=== PATIENT | female | born 1995 | race Hispanic/Latino ===

== ENCOUNTER 2024-05-08 17:23 | Emergency (ER) | payer MEDICAID ==
[~2024-05-08] VITALS: Ht 157.5 cm; Wt 86.2 kg
[~2024-05-08 17:23] MED LIST: INS7030 SQ; LISI2.5T13 PO; LOVA20TA3 PO; METF-910 PO
[2024-05-08 17:26] VITALS: BP 142/92; PULSE 115; RESP 18
[2024-05-08] MEDS ORDERED: CEPH500B PO (18:05)
[2024-05-08] MEDS: CEFTRIAXONE 1G VIAL IM ONE (18:13)
[2024-05-08] MEDS: DIPH,PERTUSS(ACELL),TET VAC/PF 0.5 ML VIAL IM ONE (18:15)
[2024-05-10] MEDS ORDERED: CLIN-141 PO (00:03)
== END 2024-05-08 18:29 | disposition home or self-care (01) ==
LOC: EDH 17:23
DX: L02.811 Cutaneous abscess of head [any part, except face] (principal); Z79.899 Other long term (current) drug therapy; Z88.6 Allergy status to analgesic agent
CPT/HCPCS: 99284; 90715; 96372; 90471; J0696

== ENCOUNTER 2025-10-23 14:40 | Emergency (ER) | payer MEDICAID ==
[~2025-10-23] VITALS: Ht 157.5 cm; Wt 81.6 kg
--- NOTE | 2025-10-23 14:46 | ERN ---
ED Note History of Present Illness Stated Complaint: VAG BLEED Chief Complaint: Vaginal Bleeding Time Seen by MD: 14:42 Dictation: PATIENT IS A 30-YEAR-OLD FEMALE COMING IN TODAY STATES SHE IS 10 WEEKS WITH PELVIC CRAMPING AND VAGINAL BLEEDING ONSET THIS MORNING. NO FEVER NO CHILLS NO NAUSEA VOMITING. SHE STATES HER [employer] DOCTORS DR. MATA HAD ADVISED HER TO GO TO [facility]. NO CARE SHE STATES SHE HAS NOT HAD HER 1ST APPOINTMENT WITH THE [employer] TECHNICIAN DOCTOR. Allergies: Coded Allergies: ibuprofen (Unverified Allergy, Unknown, 04/02/16) Home Meds Active Scripts Clindamycin HCl (Clindamycin HCl) 300 Mg Capsule, 300 MG PO Q6 for 7 Days, #28 CAP Prov:NORMA ORNELAS MD 05/10/24 Cephalexin Monohydrate (Keflex) 500 Mg Cap, 500 MG PO QID\ for 7 Days, #28 CAP Prov:NORMA ORNELAS MD 05/08/24 Metformin HCl (Metformin HCl ER) 500 Mg Tab.er.24h, 500 MG PO BIDMEALS, #60 TAB Prov:SHERYL CASTRO MD 04/04/16 Lisinopril (Lisinopril) 2.5 Mg Tablet, 2.5 MG PO DAILY, #30 TAB Prov:SHERYL CASTRO MD 04/04/16 Hum Insulin NPH/Reg Insulin Hm (Humulin 70/30) 100 Units/Ml Inj, 10 UNITS SQ BIDAC for 50 Days, ML Prov:SHERYL CASTRO MD 04/04/16 Lovastatin (Lovastatin) 20 Mg Tablet, 20 MG PO HS, #30 TAB Prov:SHERYL CASTRO MD 04/04/16 Past Medical History Past Medical History: No Pertinent History Surgical History: None : 2 Para: 0 Aborts: 1 RN Note Reviewed/Agreed w/PFSH: Yes Review of System Dictation CONSTITUTIONAL: NEGATIVE EXCEPT FOR HPI HEAD/FACE: NEGATIVE EXCEPT FOR HPI EENT: NEGATIVE EXCEPT FOR HPI RESPIRATORY: NEGATIVE EXCEPT FOR HPI GASTROINTESTINAL/ABDOMINAL: NEGATIVE EXCEPT FOR HPI GENITOURINARY: NEGATIVE EXCEPT FOR HPI PELVIC CRAMPING/VAGINAL BLEEDING MUSCULOSKELETAL: NEGATIVE EXCEPT FOR HPI INTEGUMENTARY: NEGATIVE EXCEPT FOR HPI NEUROLOGICAL/PSYCH: NEGATIVE EXCEPT FOR HPI HEMATOLOGIC/LYMPHATIC: NEGATIVE EXCEPT FOR HPI ALL SYSTEMS NEGATIVE, EXCEPT NOTED ABOVE. 13 POINT REVIEW OF SYSTEMS ASSESSED AND ALL NEGATIVE EXCEPT FOR ABOVE. Initial Vital Sign VS Vital Signs Date Time Temp Pulse Resp B/P (MAP) Pulse Ox O2 Delivery O2 Flow Rate FiO2 10/23/25 14:42 98.2 92 18 159/90 98 Physical Exam Dictation VITAL SIGNS REVIEWED GENERAL APPEARANCE: ALERT, ORIENTED X 3, NO ACUTE DISTRESS, WELL DEVELOPED, NOUR ISHED. HEAD AND FACE: NON-TRAUMATIC. EYES: PERRL, PINK CONJUNCTIVAS, EYELID NO TRAUMA, ANTERIOR CHAMBER WITH ARCUS SENILIS. EARS: PINNAS INTACT AND NO SIGNS OF TRAUMA OR ERYTHEMA EAR CANALS CLEAR AND NO DISCHARGE TM NO ERYTHEMA NOSE: NO DISCHARGE, NO BLEEDING. OROPHARYNX: MOUTH NORMAL, TONGUE PINK, PHARYNX CLEAR,NO ERYTHEMA, TONSILS NO EXUDATES, NO ABSCESSES NOTED, MUCOUS MEM BRANE MOIST NECK: SUPPLE, NON-TENDER, NO THYROMEGALY, NO MASSES, NO JVD, NO BRUITS BREAST:DEFERRED CHEST:NO TENDERNESS, NO CREPITUS, NO PARADOXICAL MOVEMENT, NO RETRACTIONS LUNGS:CLEAR, WELL-VENTILATED, SYMMETRIC, NO RALES, NO WHEEZING, NO RHONCHI, NO STRIDOR, GOOD BREATH SOUNDS BILATERALLY HEART: REGULAR RATE, REGULAR RHYTHM, NO MURMUR, NO GALLOPS VASCULAR: NO PERIPHERAL EDEMA, ABDOMEN: SOFT, POSITIVE BOWEL SOUNDS, NONDISTENDED, NO GUARDING, NONTENDER, NO REBOUND, NO MASSES NO HEPATOMEGALY, NO SPLENOMEGALY, NO SWAIN'S SIGN, NO HERNIAS. RECTAL: DEFERRED GENITAL: DEFERRED NEUROLOGICAL: NORMAL SPEECH, MOTOR FUNCTION INTACT, SENSORY FUNCTION INTACT MUSCULOSKELETAL: NECK NONTENDER, FULL RANGE OF MOTION, BACK NONTENDER, FULL RANGE OF MOTION, EXTREMITIES: NONTENDER, FULL RANGE OF MOTION SKIN: COLOR PINK, DRY, NO TURGOR, NO RASH, NO LACERATIONS, NO ABRASIONS, NO CONTUSIONS. LYMPHATIC: DEFERRED Results (Laboratory/Radiology) Laboratory/Radiology Laboratory Tests Test 10/23/25 14:51 White Blood Count 11.9 K/uL (4.8-10.8) H Red Blood Count 5.01 MIL/uL (4.00-5.50) Hemoglobin 14.2 g/dL (12.0-16.0) Hematocrit 42.3 % (36-48) Mean Corpuscular Volume 84.4 fL (79-99) Mean Corpuscular Hemoglobin 28.3 pg (27.0-33.0) Mean Corpuscular Hemoglobin Concent 33.6 g/dL (32.0-36.0) Red Cell Distribution Width 12.7 % (11.0-15.5) Platelet Count 315 K/uL (130-400) Mean Platelet Volume 9.8 fL (7.5-10.5) Immature Granulocyte % (Auto) 0.4 % (0-1) Neutrophils (%) (Auto) 65.5 % (40.0-77.0) Lymphocytes (%) (Auto) 26.1 % (21.0-51.0) Monocytes (%) (Auto) 6.0 % (3.0-13.0) Eosinophils (%) (Auto) 1.6 % (0.0-8.0) Basophils (%) (Auto) 0.4 % (0.0-5.0) Neutrophils # (Auto) 7.8 K/uL (1.8-7.7) H Lymphocytes # (Auto) 3.1 K/uL (1.0-4.8) Monocytes # (Auto) 0.7 K/uL (0.1-1.0) Eosinophils # (Auto) 0.19 K/uL (0.00-0.70) Basophils # (Auto) 0.05 K/uL (0.00-0.20) Absolute Immature Granulocyte (auto 0.05 K/uL (0-1) Nucleated Red Blood Cells 0.0 % (0.0-0.19) Sodium Level 135 mmol/L (136-145) L Potassium Level 3.8 mmol/L (3.5-5.1) Chloride Level 99 mmol/L (101-111) L Carbon Dioxide Level 27 mmol/L (21-32) Blood Urea Nitrogen 9 mg/dL (7-18) Creatinine 0.6 mg/dL (0.5-1.0) Glomerular Filtration Rate Calc 124 mL/min (>90) Random Glucose 224 mg/dL (70-105) H Total Calcium 9.2 mg/dL (8.5-10.1) Human Chorionic Gonadotropin, Quant 929 mIU/mL (0-5) H 1510/OB ULTRASOUND DEMONSTRATES NO IUP AT THIS TIME. Labs Reviewed?: Yes ED Course ED Course Orders Procedure Category Date Status Time Cbc With Differential LAB 12/9/25 Complete 14:44 Hcg,Quantitative LAB 10/23/25 Complete 14:44 Us Ob <14 Weeks US 10/23/25 Taken 14:44 Type And Screen BBK 10/23/25 In Process 14:44 Basic Metabolic Panel LAB 10/23/25 Complete 14:44 Vital Signs Date Time Temp Pulse Resp B/P (MAP) Pulse Ox O2 Delivery O2 Flow Rate FiO2 10/23/25 14:42 98.2 92 18 159/90 98 1525/PATIENT MADE AWARE THAT SHE HAS HAD A COMPLETE MISCARRIAGE. SHE WAS ADVISED TO CONTINUE VITAMINS AND FOLLOW UP WITH DR. MATA IN THE NEXT 1-2 DAYS. Medical Decision Making MDM MEDICAL DISCHARGE MAKING BASED ON BASIC LABS FOR VAGINAL BLEEDING TO INCLUDE HCG QUANTITATIVE AND ULTRASOUND ULTRASOUNDS DEMONSTRATES NO IUP AT THIS TIME. HCG QUANT 929 PATIENT WAS ADVISED SHE HAS HAD A COMPLETE MISCARRIAGE AND TO SEE YOUR DOCTOR ADOLFO IN THE NEXT 1-2 DAYS DX & DISP Disposition: Discharge Departure Impression: Primary Impression: Complete miscarriage Additional Impressions: Hyponatremia, Uncontrolled diabetes mellitus, Dehydration Condition: Stable Additional Instructions: FOLLOW-UP WITH PRIMARY CARE PROVIDER IN 1 TO 2 DAYS. TAKE MEDICATIONS DIRECTED HERE IN THE EMERGENCY ROOM. OKAY TO CONTINUE HOME MEDICATIONS UNLESS OTHERWISE DISCUSSED DURING YOUR VISIT IN THE EMERGENCY ROOM TODAY. RETURN TO YOUR NEAREST EMERGENCY ROOM IF SYMPTOMS WORSEN OR IF THERE IS NO IMPROVEMENT. CALL 911 IF YOU NEED IMMEDIATE ASSISTANCE. TAKE TYLENOL OR MOTRIN [id number] NEEDED AND IF NO CONTRAINDICATIONS ARE PRESENT. INCREASE ORAL HYDRATION. A WOUND CULTURE OR URINE CULTURE WAS ORDERED HERE IN THE EMERGENCY ROOM DEPARTMENT PLEASE FOLLOW-UP WITH PRIMARY CARE PROVIDER AND ADVISE THEM TO GET REPEAT PORTS FROM OUR FACILITY. IF YOU HAD ANY ZAK WRAP/SPLINTS THAT WERE APPLIED HERE, PLEASE DO NOT REMOVE THEM UNTIL YOU SEE YOUR PRIMARY CARE OR SPECIALTY. SEE DR. MATA IN THE NEXT 1-2 DAYS. Referrals: SELF,REFERRAL (PCP) Time of Disposition: 15:24 I have reviewed the case, and I agree with, Diagnosis and Plan SHAVON ZAVALETA Oct 23, 2025 14:46
[2025-10-23 15:01] LABS: IMMATURE GRANULOCYTE ABSOLUTE 0.05 K/uL (0-1); NUCLEATED RED BLOOD CELLS 0.0 % (0.0-0.19); PLATELET COUNT (AUTO) 315 K/uL (130-400); RED BLOOD CELL COUNT(AUTO) 5.01 MIL/uL (4.00-5.50); RED CELL DISTRIBUTION WIDTH 12.7 % (11.0-15.5); WHITE BLOOD COUNT (AUTO) 11.9 K/uL (4.8-10.8)
[2025-10-23 15:08] LABS: CREATININE 0.6 mg/dL (0.5-1.0); GLOMERULAR FILTR. RATE CALC 124.0 mL/min (>90); GLUCOSE,RANDOM 224.0 mg/dL (70-105); SODIUM SERUM 135.0 mmol/L (136-145); UREA NITROGEN, BLOOD 9.0 mg/dL (7-18)
[2025-10-23 15:15] VITALS: BP 132/71; PULSE 73; RESP 20; TEMP 98.3; O2SAT 99
[2025-10-23 15:20] LABS: HCG,QUANTITATIVE 929.0 mIU/mL (0-5)
--- NOTE | 2025-10-23 15:49 | HMCIMG ---
STUDY US OBSTETRICAL, COMPLETE <14 WEEKS HISTORY Vaginal bleeding and cramping; approximately 10 weeks ; no prior care. TECHNIQUE Transabdominal ultrasound examination of the pelvis and uterus was performed with image documentation. COMPARISON No prior imaging available for comparison. FINDINGS GESTATION No intrauterine gestational sac, yolk sac, or embryo is identified. UTERUS The uterus measures approximately 9.3 x 4.7 x 5.3 cm. The endometrial thickness is approximately 5 mm. No focal myometrial mass is seen. CERVIX The cervix appears closed and unremarkable within the limits of the transabdominal examination. OVARIES The right ovary measures approximately 4.5 x 2.9 x 3.0 cm and the left ovary measures approximately 3.3 x 2.7 x 2.5 cm. Both ovaries demonstrate normal vascularity and no adnexal mass is visualized. FREE FLUID No free fluid is seen in the pelvis. IMPRESSION * No intrauterine is visualized on this transabdominal study in a patient reporting approximately 10 weeks gestation with vaginal bleeding; findings are suspicious for early loss versus early/unknown location . * Normal-appearing uterus and ovaries without adnexal mass or free pelvic fluid; correlation with quantitative serum beta-hCG levels and follow-up ultrasound, including transvaginal evaluation, is recommended if clinically warranted. /[place]
== END 2025-10-23 15:40 | disposition home or self-care (01) ==
LOC: EDH 14:40
DX: O03.9 Complete or unspecified spontaneous abortion without complication (principal); O03.83 Metabolic disorder following complete or unspecified spontaneous abortion; E87.1 Hypo-osmolality and hyponatremia; O24.911 Unspecified diabetes mellitus in pregnancy, first trimester; E11.65 Type 2 diabetes mellitus with hyperglycemia; E86.0 Dehydration; Z88.6 Allergy status to analgesic agent; Z79.899 Other long term (current) drug therapy; Z3A.10 10 weeks gestation of pregnancy
CPT/HCPCS: 36415; 76801; 80048; 84702; 85025; 86850; 86900; 86901; 99284